=== PATIENT | female | born 1995 | race Asian ===

== ENCOUNTER 2016-12-05 20:20 | Emergency (ER) | payer OTHER ==
[~2016-12-05] VITALS: Ht 157.5 cm; Wt 40.8 kg
--- NOTE | 2016-12-05 20:22 | NUR ---
Patient to ER bed 8 to gown for evaluation. Side rails up. Report given to KAYE MARSHALL.
--- NOTE | 2016-12-05 20:23 | NUR ---
Patient to ER C/O severe nausea, vomiting all day "cant hold anything down" and epigastric pain /. No constipation or diarrhea, afebrile. AAOx4, unlabored breathing, no signs of acute dsitress.
--- NOTE | 2016-12-05 20:24 | NUR ---
ER AYESHA Dunn at bedside for evaluation
[2016-12-05 20:25] VITALS: BP 103/66; PULSE 79; RESP 17; TEMP 98.4; O2SAT 100
[2016-12-05 20:50] LABS: BILIRUBIN,URINE NEGATIVE (NEGATIVE); CLARITY/URINE CLEAR (CLEAR); COLOR,URINE YELLOW (YELLOW); GLUCOSE,URINE NEGATIVE (NEGATIVE); KETONES,URINE 3+ (NEGATIVE); LEUKOCYTE ESTERASE ,URINE NEGATIVE (NEGATIVE); NITRITE, URINE NEGATIVE (NEGATIVE); PROTEIN URINE 1+ (NEGATIVE); UROBILINOGEN,URINE 0.2 (0.2-1.0)
--- NOTE | 2016-12-05 20:50 | NUR ---
# 22 gauge angiocath placed to right hand. Use of asceptic technique. Opsite placed over site. Blood return noted. Flushed with 10 cc of normal saline. No evidence of infiltration noted. Patient tolerated well.
[2016-12-05 20:52] LABS: BLOOD, URINE TRACE (NEGATIVE)
[2016-12-05] MEDS ORDERED: ONDANSETRON HCL 4 MG/2 ML VIAL IVP ONE (21:00)
[2016-12-05] MEDS ORDERED: NACL 0.9% 1,000 ML IV ONE (21:00)
[2016-12-05 21:08] LABS: BACTERIA,URINE FEW /HPF (None Seen); MUCUS,URINE 3+ /LPF (None Seen); WBC,URINE 0-3 /HPF (0-3)
[2016-12-05 22:00] VITALS: BP 112/69; PULSE 83; RESP 17; TEMP 98.2; O2SAT 99
--- NOTE | 2016-12-05 22:00 | NUR ---
Patient given written and verbal discharge instructions and verbalizes understanding. ER [employer] Mona discussed with patient the results and treatment provided. Patient in stable condition. ID arm band removed. IV catheter removed intact and dressing applied, no active bleeding. Rx of zofran given. Patient educated on pain management and to follow up with PMD. Pain Scale 0/10. Opportunity for questions provided and answered.
== END 2016-12-05 22:00 | disposition home or self-care (01) ==
LOC: SED 20:20
DX: K52.9 Noninfective gastroenteritis and colitis, unspecified (principal); R31.9 Hematuria, unspecified
CPT/HCPCS: 81000; 81025; 96361; 96374; 99284; J2405; J7030